=== PATIENT | male | born 1970 | race Caucasian/White ===

== ENCOUNTER → 2018-01-14 | Outpatient (CLI) | payer OTHER ==
--- NOTE | 2018-01-14 12:18 | XR ---
EXAMINATION TYPE: XR tibia fibula LT DATE OF EXAM: 01/14/2018 COMPARISON: NONE HISTORY: 47-year-old male pain after contusion left leg TECHNIQUE: 2 views FINDINGS: No acute fracture. The knee and ankle articulations appear grossly intact. Mild subcutaneous cutaneou s soft tissue swelling of the distal half of the leg. IMPRESSION: Soft tissue swelling of the distal half of the leg. No acute osseous abnormality seen.
== END | disposition home or self-care (01) ==
LOC: RADXRMAIN 11:20
PROVIDERS: ATTEND Emergency Medicine
DX: M79.89 Other specified soft tissue disorders (principal)